=== PATIENT | male | born 1950 | race Caucasian/White ===

== ENCOUNTER → 2016-12-14 | Outpatient (CLI) | payer OTHER, MEDICARE | LOC: FIMAGING 08:28 | PROVIDERS: ATTEND Specialist | DX: N20.0 Calculus of kidney (principal) ==

== ENCOUNTER → 2017-02-26 | Outpatient (CLI) | payer OTHER, MEDICARE | LOC: FIMAGING 09:08 | PROVIDERS: ATTEND Specialist | DX: N20.2 Calculus of kidney with calculus of ureter (principal) ==

== ENCOUNTER → 2018-02-14 | Outpatient (CLI) | payer OTHER, MEDICARE | LOC: FIMAGING 07:42 | PROVIDERS: ATTEND Specialist | DX: Z09 Encounter for follow-up examination after completed treatment for conditions other than malignant neoplasm (principal); N20.0 Calculus of kidney; R93.49 Abnormal radiologic findings on diagnostic imaging of other urinary organs ==

== ENCOUNTER 2019-02-02 08:09 | Observation (INO) | payer OTHER, MEDICARE ==
--- NOTE | 2019-02-02 08:28 | EDPHY ---
H & P Time Seen by Provider: 02/02/19 08:28 HPI/ROS: CHIEF COMPLAINT: Abdominal pain and nausea HISTORY OF PRESENT ILLNESS: [place] well until yesterday around 5:00 p.m. When he started having sort of diffuse abdominal discomfort. He felt like his stomach was very full and then all night was up because of discomfort any vomited just a little bit a couple of times this morning. Not associated with fever or chills, a little bit of a bowel movement today. No urinary symptoms, no recent injury or trauma, no fever or chills. This morning it is more on the right side. Does not radiate. Not better worse with movement but it is worse with oral intake. REVIEW OF SYSTEMS: Eye: no change in vision ENT: no sore throat Cardiac: no chest pain or syncope Pulmonary: no cough or SOB Abdomen: HPI Musculoskeletal: no back pain Skin: no rash Neuro: Mild headache Constitutional: no fever : no urinary symptoms A comprehensive 10 point review of systems is otherwise negative aside from elements mentioned in the history of present illness. PAST MEDICAL HISTORY: Includes hypertension and osteoarthritis with knee replacement, BPH Social history: here with his , no alcohol General Appearance: Alert and conversant, cooperative. Eyes: No scleral icterus. ENT, Mouth: Dry mucous membranes consistent with decreased oral intake Respiratory: Normal respiratory effort, breath sounds equal, lungs are clear to auscultation. Cardiovascular: Regular rate and rhythm. Gastrointestinal: Right-sided abdominal tenderness lateral to the umbilicus. Not tender in McBurney's point or negative Montague sign, no hernia, normal male . Neurological: Alert, face symmetric, normal motor and sensory in extremities. Skin: Warm and dry, no rashes. Musculoskeletal: No peripheral edema. Psychiatric: Not agitated. Emergency Department course/MDM: Zofran 4 and normal saline 1 L for nausea and vomiting. I-STAT creatinine 1.0, CT scanning to evaluate for renal colic versus appendicitis versus bowel obstruction versus diverticulitis discussed and consented. 1115: reexamined has recurrent pain and nausea, will admit given severity of findings on CT for observation and IV fluids. Smoking Status: Never smoked Constitutional: Initial Vital Signs Temperature (C) 36.9 C 02/02/19 08:23 Heart Rate 93 02/02/19 08:23 Respiratory Rate 18 02/02/19 08:23 Blood Pressure 151/105 H 02/02/19 08:23 O2 Sat (%) 98 02/02/19 08:23 O2 Delivery Mode Room Air Allergies/Adverse Reactions: No Known Allergies Allergy (Verified 02/02/19 08:26) Home Medications: Medication Instructions Recorded [place]-3 Fatty Acids [Fish Oil 1000 1,000 mg PO DAILY@08/01/14 mg (*)] Tamsulosin HCl [Flomax 0.4 MG (*)] 0.8 mg PO DAILY@08/01/14 Aspirin [Aspirin 81mg (*)] 81 mg PO DAILY@02/02/19 Atorvastatin Calcium [Lipitor 10 10 mg PO DAILY@02/02/19 mg (*)] Finasteride [Proscar 5 MG (*)] 5 mg PO DAILY@02/02/19 Lisinopril 30 mg PO DAILY@02/02/19 Medical Decision Making - Diagnostics Imaging Results: Imaging Impressions Abdomen CT 02/02/19 08:42 Impression: 1. Ileal enteritis resulting in low-grade partial small bowel obstruction and regional mesenteric edema in the right midabdomen. Infectious or inflammatory etiologies. No evidence of underlying mass. 2. Normal appendix. 3. Trace free fluid. No abscess or bowel perforation. 4. Extensive diverticulosis of the ascending, descending and sigmoid colon. No acute diverticulitis. 5. Bilateral nephrolithiasis. No hydronephrosis or ureteral calculi. Findings discussed with Emergency Department physician, Vinicius Nava, on 02/02/2019 at 10:52 a.m. Imaging: Discussed imaging studies w/ body recall instructor Radiologist Consult/Admit Bed Type: [place] [id number] - Data Points Laboratory Results: Laboratory Results 02/02/19 08:30 02/02/19 08:30 02/02/19 02/02/19 02/02/19 08:45 08:41 08:30 WBC RBC Hgb POC Hgb 19.7 gm/dL H gm/dL (13.7-17.5) Hct POC Hct 58 % H % (40-51) MCV MCH MCHC RDW Plt Count MPV Neut % (Auto) Lymph % (Auto) [place] % (Auto) Eos % (Auto) Baso % (Auto) Nucleat RBC Rel Count Absolute Neuts (auto) Absolute Lymphs (auto) Absolute Monos (auto) Absolute Eos (auto) Absolute Basos (auto) Absolute Nucleated RBC Immature Gran % Immature Gran # POC Sodium 144 mEq/L mEq/L (135-145) Sodium 141 mEq/L mEq/L (135-145) POC Potassium 3.6 mEq/L mEq/L (3.3-5.0) Potassium 4.1 mEq/L mEq/L (3.5-5.2) POC Chloride 106 mEq/L mEq/L (97-110) Chloride 106 mEq/L mEq/L (97-110) Carbon Dioxide 21 mEq/l L mEq/l (22-31) POC Total CO2 22 mEq/L mEq/L (22-31) Anion Gap 14 mEq/L mEq/L (6-14) POC BUN 20 mg/dL mg/dL (7-23) BUN 20 mg/dL mg/dL (7-23) Creatinine 1.0 mg/dL mg/dL (0.7-1.3) POC Creatinine 1.0 mg/dL mg/dL (0.7-1.3) Estimated GFR > 60 Glucose 158 mg/dL H mg/dL (70-100) POC Glucose 164 mg/dL H mg/dL (70-100) Calcium 10.4 mg/dL mg/dL (8.5-10.4) Total Bilirubin 0.9 mg/dL mg/dL (0.1-1.4) Conjugated Bilirubin 0.3 mg/dL mg/dL (0.0-0.5) Unconjugated Bilirubin 0.6 mg/dL mg/dL (0.0-1.1) AST 25 IU/L IU/L (17-59) ALT 52 IU/L IU/L (21-72) Alkaline Phosphatase 98 IU/L IU/L (38-126) Total Protein 8.0 g/dL g/dL (6.3-8.2) Albumin 4.8 g/dL g/dL (3.5-5.0) Lipase 185 IU/L IU/L (23-300) Urine Color YELLOW Urine Appearance CLEAR Urine pH 6.0 (5.0-7.5) Ur Specific [place] 1.027 (1.002-1.030) Urine Protein 1+ H (NEGATIVE) Urine Ketones TRACE H (NEGATIVE) Urine Blood 2+ H (NEGATIVE) Urine Nitrate NEGATIVE (NEGATIVE) Urine Bilirubin NEGATIVE (NEGATIVE) Urine Urobilinogen NEGATIVE EU EU (0.2-1.0) Ur Leukocyte Esterase NEGATIVE (NEGATIVE) Urine RBC 25-50 /hpf H /hpf (0-3) Urine WBC 1-3 /hpf /hpf (0-3) Ur Epithelial Cells NONE SEEN /lpf /lpf (NONE-1+) Urine Mucus TRACE /lpf /lpf (NONE-1+) Urine Glucose NEGATIVE (NEGATIVE) 02/02/19 08:30 WBC 15.72 10^3/uL H 10^3/uL (3.80-9.50) RBC 6.61 10^6/uL H 10^6/uL (4.40-6.38) Hgb 18.5 g/dL H g/dL (13.7-17.5) POC Hgb Hct 53.8 % H % (40.0-51.0) POC Hct MCV 81.4 fL L fL (81.5-99.8) MCH 28.0 pg pg (27.9-34.1) MCHC 34.4 g/dL g/dL (32.4-36.7) RDW 14.2 % % (11.5-15.2) Plt Count 299 10^3/uL 10^3/uL (150-400) MPV 9.6 fL fL (8.7-11.7) Neut % (Auto) 92.1 % H % (39.3-74.2) Lymph % (Auto) 4.8 % L % (15.0-45.0) Stearns % (Auto) 2.6 % L % (4.5-13.0) Eos % (Auto) 0.0 % L % (0.6-7.6) Baso % (Auto) 0.2 % L % (0.3-1.7) Nucleat RBC Rel Count 0.0 % % (0.0-0.2) Absolute Neuts (auto) 14.48 10^3/uL H 10^3/uL (1.70-6.50) Absolute Lymphs (auto) 0.76 10^3/uL L 10^3/uL (1.00-3.00) Absolute Monos (auto) 0.41 10^3/uL 10^3/uL (0.30-0.80) Absolute Eos (auto) 0.00 10^3/uL L 10^3/uL (0.03-0.40) Absolute Basos (auto) 0.03 10^3/uL 10^3/uL (0.02-0.10) Absolute Nucleated RBC 0.00 10^3/uL 10^3/uL (0-0.01) Immature Gran % 0.3 % % (0.0-1.1) Immature Gran # 0.04 10^3/uL 10^3/uL (0.00-0.10) POC Sodium Sodium POC Potassium Potassium POC Chloride Chloride Carbon Dioxide POC Total CO2 Anion Gap POC BUN BUN Creatinine POC Creatinine Estimated GFR Glucose POC Glucose Calcium Total Bilirubin Conjugated Bilirubin Unconjugated Bilirubin AST ALT Alkaline Phosphatase Total Protein Albumin Lipase Urine Color Urine Appearance Urine pH Ur Specific [place] Urine Protein Urine Ketones Urine Blood Urine Nitrate Urine Bilirubin Urine Urobilinogen Ur Leukocyte Esterase Urine RBC Urine WBC Ur Epithelial Cells Urine Mucus Urine Glucose Medications Given: Sodium Chloride (Ns) 1,000 mls @ 75 mls/hr IV CONT [place]NDINA Stop: 08/01/19 12:29 Last Admin: 02/02/19 13:03 Dose: 1,000 mls Discontinued Medications Acetaminophen (Tylenol) 1,000 mg PO EDNOW ONE Stop: 02/02/19 09:00 Last Admin: 02/02/19 09:20 Dose: 1,000 mg Fentanyl (Sublimaze) 50 mcg IVP EDNOW ONE Stop: 02/02/19 11:20 Last Admin: 02/02/19 11:26 Dose: 50 mcg Sodium Chloride (Ns) 1,000 mls @ 0 mls/hr IV EDNOW ONE; Wide Open PRN Reason: Protocol Stop: 02/02/19 08:41 Last Admin: 02/02/19 08:46 Dose: 1,000 mls Sodium Chloride (Ns) 1,000 mls @ 0 mls/hr IV EDNOW ONE; Wide Open PRN Reason: Protocol Stop: 02/02/19 08:47 Last Admin: 02/02/19 09:20 Dose: 1,000 mls Ondansetron HCl (Zofran) 4 mg IVP EDNOW ONE Stop: 02/02/19 08:41 Last Admin: 02/02/19 08:46 Dose: 4 mg Promethazine HCl (Phenergan) 12.5 mg IVP EDNOW ONE Stop: 02/02/19 11:20 Last Admin: 02/02/19 11:26 Dose: 12.5 mg Point of Care Test Results: Chemistry 02/02/19 08:41 POC Sodium 144 mEq/L mEq/L (135-145) POC Potassium 3.6 mEq/L mEq/L (3.3-5.0) POC Chloride 106 mEq/L mEq/L (97-110) POC Total CO2 22 mEq/L mEq/L (22-31) POC BUN 20 mg/dL mg/dL (7-23) POC Creatinine 1.0 mg/dL mg/dL (0.7-1.3) POC Glucose 164 mg/dL H mg/dL (70-100) ISTAT H&H 02/02/19 08:41 POC Hgb 19.7 gm/dL H gm/dL (13.7-17.5) POC Hct 58 % H % (40-51) Departure - Departure Disposition: [facility] Inpatient Acute Clinical Impression: Enteritis Nausea & vomiting Qualifiers: Vomiting type: unspecified Vomiting Intractability: non-intractable Qualified Code(s): R11.2 - Nausea with vomiting, unspecified Condition: Good
[2019-02-02] MEDS ORDERED: ONDANSETRON 4 MG/2 ML VIAL IVP ONE (08:40)
[2019-02-02] MEDS ORDERED: NS 1,000 ML IV ONE ×2 (08:40→08:46)
[2019-02-02 08:51] LABS: PLATELET COUNT 299 10^3/uL (150-400)
[2019-02-02] MEDS ORDERED: IOPAMIDOL (ISOVUE-300) 100 ML BTL ONE (08:52)
[2019-02-02] MEDS ORDERED: ACETAMINOPHEN 500 MG TAB PO ONE (08:59)
[2019-02-02] MEDS ORDERED: PROMETHAZINE HCL 25 MG/ML INJ IVP ONE (11:19)
[2019-02-02] MEDS ORDERED: fentaNYL 100 MCG/2 ML INJ IVP ONE (11:19)
--- NOTE | 2019-02-02 12:11 | PDGENHP ---
History and Physical - Chief Complaint abdominal pain - History of Present Illness The patient is a 68-year-old male with past medical history of hypertension, hyperlipidemia and BPH presented to the emergency room with acute onset of abdominal pain. A said that he ate lunch yesterday and then few hours after that developed some abdominal cramping. The pain persisted until this morning it became much worse. He has had some nausea but no vomiting. He had 1 small bowel movement this morning that was normal and contained no black or blood. He denied any fevers, chills, chest pain, diarrhea, dysuria or other symptoms. His abdomen feels more bloated and distended than normal. The pain is diffusely located but seems to be worse on the left. Nothing seems to make it better or worse, any has tried making himself throw up which has not helped much. History Information - Allergies/Home Medication List Allergies/Adverse Reactions: No Known Allergies Allergy (Verified 02/02/19 08:26) Home Medications: [place]-3 Fatty Acids [Fish Oil 1000 mg (*)] 1,000 mg PO DAILY@08/01/14 [Last Taken 02/01/19] Tamsulosin HCl [Flomax 0.4 MG (*)] 0.8 mg PO DAILY@08/01/14 [Last Taken 02/01] Aspirin [Aspirin 81mg (*)] 81 mg PO DAILY@02/02/19 [Last Taken 02/01/19] Atorvastatin Calcium [Lipitor 10 mg (*)] 10 mg PO DAILY@02/02/19 [Last Taken 02/01/19] Finasteride [Proscar 5 MG (*)] 5 mg PO DAILY@02/02/19 [Last Taken 02/01/19] Lisinopril 30 mg PO DAILY@02/02/19 [Last Taken 02/01/19] I have personally reviewed and updated: family history, medical history, social history, surgical history - Past Medical History Additional medical history: htn, hld, bph, - Surgical History Additional surgical history: right knee surgery - Family History Positive for: non-pertinent - Social History Smoking Status: Never smoked Drug Use: Marijuana Review of Systems Review of Systems: ROS: 10pt was reviewed & negative except for what was stated in HPI & below Physical Exam Physical Exam: Temp Pulse Resp BP Pulse Ox 36.8 C 89 16 130/88 H 91 L 02/02/19 10:14 02/02/19 10:14 02/02/19 10:14 02/02/19 10:14 02/02/19 10:14 Lab Data & Imaging Review 02/02/19 08:30 02/02/19 08:30 WBC 15.72 10^3/uL (3.80-9.50) H 02/02/19 08:30 RBC 6.61 10^6/uL (4.40-6.38) H 02/02/19 08:30 Hgb 18.5 g/dL (13.7-17.5) H 02/02/19 08:30 POC Hgb 19.7 gm/dL (13.7-17.5) H 02/02/19 08:41 Hct 53.8 % (40.0-51.0) H 02/02/19 08:30 POC Hct 58 % (40-51) H 02/02/19 08:41 MCV 81.4 fL (81.5-99.8) L 02/02/19 08:30 MCH 28.0 pg (27.9-34.1) 02/02/19 08:30 MCHC 34.4 g/dL (32.4-36.7) 02/02/19 08:30 RDW 14.2 % (11.5-15.2) 02/02/19 08:30 Plt Count 299 10^3/uL (150-400) 02/02/19 08:30 MPV 9.6 fL (8.7-11.7) 02/02/19 08:30 Neut % (Auto) 92.1 % (39.3-74.2) H 02/02/19 08:30 Lymph % (Auto) 4.8 % (15.0-45.0) L 02/02/19 08:30 [place] % (Auto) 2.6 % (4.5-13.0) L 02/02/19 08:30 Eos % (Auto) 0.0 % (0.6-7.6) L 02/02/19 08:30 Baso % (Auto) 0.2 % (0.3-1.7) L 02/02/19 08:30 Nucleat RBC Rel Count 0.0 % (0.0-0.2) 02/02/19 08:30 Absolute Neuts (auto) 14.48 10^3/uL (1.70-6.50) H 02/02/19 08:30 Absolute Lymphs (auto) 0.76 10^3/uL (1.00-3.00) L 02/02/19 08:30 Absolute Monos (auto) 0.41 10^3/uL (0.30-0.80) 02/02/19 08:30 Absolute Eos (auto) 0.00 10^3/uL (0.03-0.40) L 02/02/19 08:30 Absolute Basos (auto) 0.03 10^3/uL (0.02-0.10) 02/02/19 08:30 Absolute Nucleated RBC 0.00 10^3/uL (0-0.01) 02/02/19 08:30 Immature Gran % 0.3 % (0.0-1.1) 02/02/19 08:30 Immature Gran # 0.04 10^3/uL (0.00-0.10) 02/02/19 08:30 POC Sodium 144 mEq/L (135-145) 02/02/19 08:41 Sodium 141 mEq/L (135-145) 02/02/19 08:30 POC Potassium 3.6 mEq/L (3.3-5.0) 02/02/19 08:41 Potassium 4.1 mEq/L (3.5-5.2) 02/02/19 08:30 POC Chloride 106 mEq/L (97-110) 02/02/19 08:41 Chloride 106 mEq/L (97-110) 02/02/19 08:30 Carbon Dioxide 21 mEq/l (22-31) L 02/02/19 08:30 POC Total CO2 22 mEq/L (22-31) 02/02/19 08:41 Anion Gap 14 mEq/L (6-14) 02/02/19 08:30 POC BUN 20 mg/dL (7-23) 02/02/19 08:41 BUN 20 mg/dL (7-23) 02/02/19 08:30 Creatinine 1.0 mg/dL (0.7-1.3) 02/02/19 08:30 POC Creatinine 1.0 mg/dL (0.7-1.3) 02/02/19 08:41 Estimated GFR > 60 02/02/19 08:30 Glucose 158 mg/dL (70-100) H 02/02/19 08:30 POC Glucose 164 mg/dL (70-100) H 02/02/19 08:41 Calcium 10.4 mg/dL (8.5-10.4) 02/02/19 08:30 Total Bilirubin 0.9 mg/dL (0.1-1.4) 02/02/19 08:30 Conjugated Bilirubin 0.3 mg/dL (0.0-0.5) 02/02/19 08:30 Unconjugated Bilirubin 0.6 mg/dL (0.0-1.1) 02/02/19 08:30 AST 25 IU/L (17-59) 02/02/19 08:30 ALT 52 IU/L (21-72) 02/02/19 08:30 Alkaline Phosphatase 98 IU/L (38-126) 02/02/19 08:30 Total Protein 8.0 g/dL (6.3-8.2) 02/02/19 08:30 Albumin 4.8 g/dL (3.5-5.0) 02/02/19 08:30 Lipase 185 IU/L (23-300) 02/02/19 08:30 Urine Color YELLOW 02/02/19 08:45 Urine Appearance CLEAR 02/02/19 08:45 Urine pH 6.0 (5.0-7.5) 02/02/19 08:45 Ur Specific [place] 1.027 (1.002-1.030) 02/02/19 08:45 Urine Protein 1+ (NEGATIVE) H 02/02/19 08:45 Urine Ketones TRACE (NEGATIVE) H 02/02/19 08:45 Urine Blood 2+ (NEGATIVE) H 02/02/19 08:45 Urine Nitrate NEGATIVE (NEGATIVE) 02/02/19 08:45 Urine Bilirubin NEGATIVE (NEGATIVE) 02/02/19 08:45 Urine Urobilinogen NEGATIVE EU (0.2-1.0) 02/02/19 08:45 Ur Leukocyte Esterase NEGATIVE (NEGATIVE) 02/02/19 08:45 Urine RBC 25-50 /hpf (0-3) H 02/02/19 08:45 Urine WBC 1-3 /hpf (0-3) 02/02/19 08:45 Ur Epithelial Cells NONE SEEN /lpf (NONE-1+) 02/02/19 08:45 Urine Mucus TRACE /lpf (NONE-1+) 02/02/19 08:45 Urine Glucose NEGATIVE (NEGATIVE) 02/02/19 08:45 Assessment & Plan Assessment: 68-year-old male with past medical history of hypertension, hyperlipidemia and BPH who was admitted with an small-bowel obstruction versus ileus Enteritis- I reviewed the CT scan and discussed the case with the emergency room physician. CT scan showing a mild enteritis. Patient with a mild white count but no fevers or other concerning symptoms or signs of infection. He said he felt initially like he had gotten food poisoning. -supportive care -if symptoms worsen or become alarming start antibiotics -IV fluids -sent GI pathogen panel Ileus versus small-bowel obstruction- related to enteritis likely. No distinct transition point noted on CT. Not actively vomiting currently -NPO with sips -IV fluids -minimize narcotics -antiemetics -if worsens and develops emesis will place an NG tube in consult surgery Abdominal pain- due to enteritis and ileus/sbo. treat as aboev Hypertension- cont home lisinopril Hyperlipidemia- resume statin once taking Po BPH- cont flomax and finasteride Hyperglycemia- no hx of diabetes and patinetn essentially fasting while here and has glucose in the 160s. Will check A1c as he may have prediabetes PPX- SCDS, No heparin, ambulate tid Fluids- NS Lytes- WNL Nutrition- NPO with sips Cor- Full Dispo- obs for enteritis and ileus/sbo
[2019-02-02] MEDS ORDERED: ONDANSETRON 4 MG/2 ML VIAL IVP PRN (12:22)
[2019-02-02] MEDS ORDERED: HYDROCODONE/APAP 5/325 TAB PO PRN (12:22)
[2019-02-02] MEDS ORDERED: ACETAMINOPHEN 325 MG TAB PO PRN (12:22)
[2019-02-02] MEDS ORDERED: ONDANSETRON DISINTEGRATING 4 MG TAB PO PRN (12:22)
[2019-02-02] MEDS: NS 1,000 ML IV SCH (13:03)
[2019-02-02] MEDS ORDERED: LISINOPRIL 10 MG TAB PO SCH (19:00)
[2019-02-02] MEDS ORDERED: TAMSULOSIN HCL 0.4 MG CAP PO SCH (19:00)
[2019-02-02] MEDS ORDERED: FINASTERIDE 5 MG TAB PO SCH (19:00)
[2019-02-03] MEDS: NS 1,000 ML IV SCH (03:31)
[2019-02-03 05:41] LABS: PLATELET COUNT 201 10^3/uL (150-400)
[2019-02-03 11:50] VITALS: BP 133/77
--- NOTE | 2019-02-03 14:35 | ASMTCMCOM ---
CM Note CM Note Notes: Pt admitted to hospital for abdominal pain, possible ileus. He is better now and will dc home w/support of . CM available for any changes. DC Plan: Independent Date Signed: 02/03/2019 02:34 PM Electronically Signed By:Genesis aBrnard RN
--- NOTE | 2019-02-03 14:37 | ASMTLACE ---
LACE Length of stay for Answers: 1 day current admission Acuity / Level of Answers: No Care: Did the patient have an inpatient admission? Comorbidities - select Answers: Other Notes: HTN; HLD all that apply # of Emergency department Answers: 1-2 visits in the last 6 months Score: 3 Date Signed: 02/03/2019 02:36 PM Electronically Signed By:Genesis Barnard RN
--- NOTE | 2019-02-03 16:11 | PDDCSUM ---
Discharge Summary Discharge Summary: Discharge diagnosis SBO versus ileus Enteritis Abdominal pain Nausea Hypertension BPH The patient is a 68-year-old male with past medical history of hypertension and BPH who presented to the emergency room with 1 day of abdominal pain, nausea. A CT scan was obtained of his abdomen which showed and mild enteritis along with early SBO versus ileus. The patient had no emesis and so an NG tube was not placed and he was managed medically. He was made NPO and given judicious pain medications along with intravenous fluids. Within 24 hr the patient was able to be advanced to a clear liquid diet. He was quickly able to be advanced to a regular diet passed flatus and had a large bowel movement with resolution of his abdominal pain. Repeat abdominal films and showed normal bowel gas pattern and no evidence of obstruction. He was discharged home to follow up with his primary care physician in good condition Disposition Home independent
== END 2019-02-03 15:32 | disposition home or self-care (01) ==
LOC: F3E 12:47
PROVIDERS: ADMIT Internal Medicine; ATTEND Internal Medicine
DX: K52.9 Noninfective gastroenteritis and colitis, unspecified (principal); K56.7 Ileus, unspecified; K56.609 Unspecified intestinal obstruction, unspecified as to partial versus complete obstruction; K57.30 Diverticulosis of large intestine without perforation or abscess without bleeding; I10 Essential (primary) hypertension; N40.0 Benign prostatic hyperplasia without lower urinary tract symptoms; E78.5 Hyperlipidemia, unspecified; R73.9 Hyperglycemia, unspecified
CPT/HCPCS: 74022; 74177; G0378; J2405; J2550; J3010; Q9967; 82435-PO; 82565-PO; 82947-PO; 84132-PO; 84154-90; 84295-PO; 84520-PO; 85014-ER; 96374

== ENCOUNTER → 2019-02-24 | Outpatient (CLI) | payer OTHER, MEDICARE | LOC: FIMAGING 08:08 | PROVIDERS: ATTEND Specialist | DX: N20.0 Calculus of kidney (principal) ==